=== PATIENT | female | born 1980 | race Caucasian/White ===

== ENCOUNTER 2017-09-02 06:09 | Emergency (ER) | payer OTHER ==
[2017-09-02 06:29] VITALS: RESP 18; TEMP 97; O2SAT 95
[2017-09-02] MEDS ORDERED: KETOROLAC TROMETHAMINE 30 MG/ML SOL IM ONE (06:35)
[2017-09-02] MEDS ORDERED: KETOROLAC TROMETHAMINE 30 MG/ML SOL ONE (06:36)
[2017-09-02] MEDS ORDERED: SOLUMEDROL 125 MG/2 ML 125 MG/2 ML PDS IM ONE (07:27)
[2017-09-02] MEDS ORDERED: SOLUMEDROL 125 MG/2 ML 125 MG/2 ML PDS ONE (07:47)
[2017-09-02 08:40] VITALS: BP 112/80; PULSE 63
== END 2017-09-02 08:02 | disposition home or self-care (01) ==
LOC: ED 06:09
DX: M54.42 Lumbago with sciatica, left side (principal)
CPT/HCPCS: 96372; 99283; J1885; J2930